=== PATIENT | male | born 1975 | race Caucasian/White ===

== ENCOUNTER 2020-09-25 10:43 | Outpatient (CLI) | payer OTHER, SELFPAY ==
--- NOTE | ~2020-09-25 | US_ITS ---
EXAMINATION: US venous doppler LE RT EXAM DATE: 09/25/2020 11:25 INDICATION: Right leg swelling. Factor 2, 5 deficiencies. Coagulopathy. TECHNIQUE: Multiple grayscale, color flow and Doppler images of the right lower extremity deep venous system obtained and reviewed. There is no prior study for comparison. FINDINGS: RIGHT SIDE Common femoral: -------- Normal. Profunda femoral: ------- Normal. Femoral: Thrombosed distally. Popliteal: Thrombosed. Posterior tibial: ---------Thrombosed. Peroneal: Normal. Gastrocnemius: Thrombosed. Soleus: Not visualized. Greater saphenous: ----- Normal. Lesser saphenous: ------ Not visualized. IMPRESSION: Positive for right lower extremity DVT as above. I discussed positive DVT results with Brit, stated she would notify Kiet Yu MD, my convers ation with her at 09/25/2020 11:42 CDT. Reviewed, dictated and finalized at location A. IMPRESSION: Positive for right lower extremity DVT as above. I discussed positive DVT results with Brit, stated she would notify Kiet Yu MD, my conversation with her at 09/25/2020 11:42 CDT.
== END 2020-09-25 10:44 | disposition home or self-care (01) ==
LOC: CHSIMG 10:48
PROVIDERS: PCP Family Medicine; Visit Provider Internal Medicine Hematology & Oncology
DX: M79.89 Other specified soft tissue disorders (principal)
CPT/HCPCS: 93971

== ENCOUNTER 2020-10-17 12:15 | Outpatient (CLI) | payer OTHER, SELFPAY ==
[2020-10-17 12:30] LABS: Basophils Absolute Auto 0.05 K/mm3 (0.00-0.10); Basophils Percent Auto 0.7 % (0.0-1.0); Eosinophils Absolute Auto 0.33 K/mm3 (0.02-0.50); Eosinophils Percent Auto 4.4 % (1.0-6.0); Hematocrit 36.5 % (40.0-54.0); Hemoglobin 12.3 g/dL (14.0-18.0); Immature Granulocyte Absolute 0.03 K/mm3 (0.00-0.00); Immature Granulocyte Percent A 0.4 % (0.0-0.0); Immature Reticulocyte Fraction 11.1 % (2.0-16.52); Lymphocytes Absolute Auto 1.47 K/mm3 (1.10-4.50); Lymphocytes Percent Auto 19.6 % (18.0-42.0); Mean Corpuscular HGB Conc 33.7 g/dL (32.0-36.0); Mean Corpuscular Hemoglobin 29.6 pg (27.0-31.0); Mean Corpuscular Volume 87.7 fL (78.0-102.0); Mean Platelet Volume 10.1 fl (8.7-11.0); Monocytes Absolute Auto 0.75 K/mm3 (0.10-0.90); Neutrophils Absolute Auto 4.9 K/mm3 (1.7-7.2); Neutrophils Percent Auto 64.9 % (50.0-70.0); Platelet Count Result 275 K/mm3 (150-420); Red Blood Count 4.16 M/mm3 (4.70-6.10); Red Cell Distribution Width 12.6 % (11.6-14.4); Reticulocyte Hemoglobin Conten 35.9 pg (28.0-35.0); Reticulocyte Percent 1.92 % (0.50-1.50); Reticulocytes Absolute 0.08 M/mm3 (0.02-0.1); White Blood Count 7.5 K/mm3 (4.8-10.8)
[2020-10-17 13:24] LABS: Ferritin 118 ng/mL (26-388); Iron 39 ug/dL (65-175); Percent Iron Saturation 12 % (12-57)
== END 2020-10-17 12:16 | disposition home or self-care (01) ==
PROVIDERS: PCP Family Medicine; Visit Provider Internal Medicine Hematology & Oncology
DX: D68.51 Activated protein C resistance (principal); M79.89 Other specified soft tissue disorders
CPT/HCPCS: 36415; 82728; 83540; 83550; 85025; 85046

== ENCOUNTER 2021-12-08 23:34 | Emergency (ER) | payer OTHER, SELFPAY ==
--- NOTE | 2021-12-08 23:40 | PC.NURSE ---
Pt brought in by officer, they were wanting a urine specimen cup per PD officer to obtain a urine. After speaking to officer they wish to do testing at station. Pt left in handcuffs c k 9 police officer and not seen for eval.
== END 2021-12-08 23:42 | disposition left against medical advice (07) ==
LOC: CHSED 23:36
PROVIDERS: Emergency Provider Internal Medicine Critical Care Medicine; PCP Family Medicine
DX: Z04.89 Encounter for examination and observation for other specified reasons (principal)
CPT/HCPCS: 99199

== ENCOUNTER 2025-03-01 13:58 | Emergency (ER) | payer OTHER, SELFPAY ==
--- NOTE | 2025-03-01 14:00 | ECG_ITS ---
Test Date: 2025-03-01 14:05:26 Measurements Intervals [place] Rate: 77 P: 75 [place]: 148 QRS: 43 QRSD: 81 T: 59 QT: 365 QTc: 415 Interpretive Statements SINUS RHYTHM NORMAL ECG No previous ECG available for comparison Electronically Signed On 03-01-2025 14:19:07 CDT by Balta Malik D.O.
--- OUTSIDE RECORDS SUMMARY | 2025-03-01 14:03 | XMS_ITS | Clinical Summary ---
Author Organization [facility] Address [address] [place] [address] Care Team Providers Care Financial Auditor Name Role Phone Bob Marie MD Primary Care Provider Kota Myles MD Unavailable Allergies No known active allergies Medications apixaban 5 MG tablet 10 mg BID X 7 days then 5 mg BID Total 30 days supply 74 tablet 12/09/19 Active hydrOXYzine 25 MG capsule hydroxyzine pamoate 25 mg capsule TAKE 1 2 CAPSULES EVERY 8 HOURS NEEDED FOR ANXIETY Active folic acid 1 MG tablet Take 1 tablet (1 mg total) by mouth daily. 08/05/19 22 Active gabapentin 300 MG capsule 1 TAB CAPSULE THREE TIMES DAILY 08/09/19 22 Active sertraline 100 MG tablet TAKE 1 TABLET TABLET DAILY FOR DEPRESSION AND ANXIETY 08/13/19 22 Active thiamine 100 MG Tab thiamine HCl (vitamin B1) 100 mg tablet TAKE 1 TABLET BY MOUTH EVERY DAY Active omeprazole 20 MG capsule 1 (ONE) CAPSULE DAILY FOR HEARTBURN 08/13/19 22 Active methadone 10 MG/ML Conc CONCENTRATED solution Take 80 mg by mouth daily. Active QUEtiapine 100 MG tablet 11/07/19 22 Active Thiamine Mononitrate (B1) 100 MG Tab Take 1 tablet by mouth daily. 10/31/19 22 Active COMPRESSION STOCKINGS 20-30 MMHg Compression Stocking Knee High open or closed toe Dx I83.893 1 Container 6 11/19/19 22 Active ondansetron 4 MG disintegrating tablet Take 1 tablet (4 mg total) by mouth every 6 (six) hours as needed for Nausea. 10 tablet 12/04/19 22 Active meclizine 25 MG chewable tablet 25-50mg three times a day as needed for dizziness 20 tablet 12/04/19 22 Active Active Problems Problem Noted Date Diagnosed Date History of pulmonary embolus (PE) 11/18/2021 History of DVT (deep vein thrombosis) 11/18/2021 Acute pulmonary embolism, un specified pulmonary embolism type, unspecified whether acute cor pulmonale present ([facility]) 01/04/2020 Anticoagulation management encounter 01/04/2020 Factor V Leiden mutation ([facility]) 01/04/2020 Prothrombin gene mutation ([facility]) 01/04/2020 IV drug abuse 01/04/2020 PE (pulmonary thromboembolism) ([facility]) 12/05/2019 Cervical radiculopathy 08/25/2019 Family History Medical History Relation Comments Cancer Father COPD Mother Relation Status Comments Father Alive Mother Alive Social History Tobacco Use Types Packs/Day Years Used Date Smoking Tobacco: Every Day Cigarettes Last attempted to quit: 10/03/2011 Smokeless Tobacco: Never Alcohol Use Standard Drinks/Week Comments Not Currently 0 (1 standard drink = 0.6 oz pur e alcohol) Sex and Gender Information Value Date Recorded Sex Assigned at Not on file Legal Sex Male 5:47 PM [employer]LECT[employer] Gender Identity Not on file Sexual Orientation Not on file Last Filed Vital Signs Vital Sign Reading Time Taken Comments Blood Pressure 120/85 11/03/2023 5:28 PM CDT Pulse 71 11/03/2023 5:28 PM CDT Temperature 36.7 C (98.1 F) 11/03/2023 5:28 PM CDT Respiratory Rate 18 11/03/2023 5:28 PM CDT Oxygen Saturation 97% 11/03/2023 5:28 PM CDT Inhaled Oxygen Concentration - - Weight 99.8 kg (220 lb) 11/03/2023 5:28 PM CDT Height 180.3 cm (5' 11) 11/03/2023 5:28 PM CDT Body Mass Index 30.68 11/03/2023 5:28 PM CDT Plan of Treatment Health Maintenance Due Date Last Done Comments Colorectal Cancer Screening Colonoscopy (10 Years) 1976 Annual Physical 09/06/1979 Hepatitis C 1994 DTaP, Tdap and Td Vaccines ( 1 - Tdap) 09/06/1995 04/16/1980, 04/09/1977, 02/05/1977 Hepatitis B Vaccines (1 of 3 - 19+ 3-dose series) 09/06/1995 Pneumococcal Vaccine: Pediatrics (0 to 5 Years) and At-Risk Patients (6 to 49 Years) (1 of 2 - PCV) 09/06/1995 COVID-19 Vaccine (2023-2 5 season) 2025 Meningococcal B Vaccine Aged Out No l onger eligible based on patient's age to complete this topic Meningococcal Vaccine Aged Out No corina soy eligible based on patient's age to complete this topic RSV Immunizations Under 20 Months Aged Out No longer eligible b ased on patient's age to complete this topic Insurance [facility] MEDICAID Advance Directives * Full Code (Latest Code Status on File) Date Activated Date Inactivated Comments 12/05/2019 6:35 AM 12/09/2019 1:25 PM Care Teams Financial Auditor Relationship Specialty Start Date End Date Bob Marie MD [address] [place] [id number] PCP - General FAMILY PRACTICE 08/25/19 Kota Myles MD [address] [place] [phone] Vascular/[employer]ional [employer] INTERNAL MEDICINE 10/09/21
--- NOTE | 2025-03-01 14:08 | ED_ITS ---
HPI - General Adult General Chief complaint: Chest Pain Stated complaint: Shortness of Breath/Tightness in Chest Time Seen by Provider: 03/01/25 14:02 Source: patient, RN notes reviewed and old records reviewed Mode of arrival: ambulatory Limitations: no limitations History of Present Illness HPI narrative: 49-year-old male presents to the [facility] with increasing chest tightness and shortness of breath that started last night. Denies any significant medical history. No treatment prior to arrival. Reports a history of hypertension but does not take medication. Treatments prior to arrival: none Related Data Home Medications ?Medication ?Instructions ?Recorded ?Confirmed ?Last Taken ?Type No Home Medications 03/01/25 03/01/25 U nknown History Allergies Allergy/AdvReac Type Severity Reaction Status Date / Time No Known Allergies Allergy Verified 03/01/25 14:08 Review of Systems Review of Systems: All systems reviewed & are unremarkable except as noted in HPI and below Constitutional: Constitutional: Reports no additional constitutional complaints Cardiovascular: Cardiovascular: Reports as per HPI, Reports chest pain and Reports dyspnea Respiratory: Respiratory: Reports as per HPI, Denies chest congestion, Denies cough and Reports dyspnea Musculoskeletal: Musculoskeletal: Reports no additional musculoskeletal complaints Integumentary/Breasts: Skin/Breast: Reports system reviewed and no additional complaints, except as docu PMFSH Comments At the time of my signature, I reviewed and agree with the nursing past medical, surgical, social, and family history. There is no relevant family history pertinent to the patient complaint. Exam Const: General: cooperative, healthy appearing, comfortable, no acute distress, well developed, alert and well nourished Nutritional Appearance: well nourished Orientation/consciousness: patient oriented x3 Limitations: no limitations HENMT: Head: normal to inspection Mouth: Yes Normal oral and palatal mucosa present, Yes lip normal, Yes tongue normal and Yes moist mucous membranes Eyes: General: appearance normal, both eyes and all related structures Alignment and Position: alignment normal Neck: Neck: normal visual inspection, full ROM, no lymphadenopathy and no meningeal signs Chest: Chest palpation & inspection: normal inspection of the chest Resp: Effort & Inspection: normal respiratory effort and able to speak in complete sentences Auscultation: clear to auscultation bilaterally, no crackles, no rales, no rhonchi and no wheezes Cardio: Rate: regular rate Skin: General skin exam: normal color and no rashes or lesions noted Neuro: General: patient oriented x3, gait normal, moves all extremities and no meningeal signs Cognition (Neuro): normal cognition Speech: normal speech Gait exam (Neuro): Normal gait present Extrem: General: normal to inspection, full ROM, capillary refill normal and normal gait Psych: Appearance: grossly normal and well kempt Mental Status: mental status grossly normal Speech and movement: Normal speech and movement present and Clear speech present Affect: normal affect Attitude: cooperative Course Course Level of Care: Express Care Visit Vital Signs Vital signs: Vital Signs Temperature 97.8 F 03/01/25 14:09 Pulse Rate 75 03/01/25 14:09 Respiratory Rate 22 H 03/01/25 14:09 Blood Pressure 128/91 H 03/01/25 14:09 Pulse Oximetry 98 03/01/25 14:09 Oxygen Delivery Room Air 03/01/25 14:09 Temperature 97.8 F 03/01/25 14:09 Pulse Rate 75 03/01/25 14:09 Respiratory Rate 22 H 03/01/25 14:09 Blood Pressure 128/91 H 03/01/25 14:09 Pulse Oximetry 98 03/01/25 14:09 Oxygen Delivery Room Air 03/01/25 14:09 Reviewed Transfer Transfered to: [facility] Transportation: Other (EMS offered, patient declined.) Transfer rationale: Patient with increasing chest pain, shortness of breath sending for higher level care Accepting physician: Spoke with Nurys BYNUM, Dr. Cota Medical Decision Making MDM Narrative Medical decision making narrative: Patient presents with chest pain, shortness of breath, concerns for cardiac issues. Explained to patient that we cannot do a cardiac workup. Sending for patient further evaluation to the ER. Patient originally stated he has a distant history of hypertension. Told RN he has a history of factor 5. Transfer instructions reviewed patient to go directly to the ER. EMS was offered, patient declined. All questions have been answered, and the patient deny any further questions. Some parts of this dictation were generated by voice recognition software and may contain typographical and/or grammatical inaccuracies. Differential Diagnosis Differential Diagnosis: Cardiac event, STEMI, non STEMI, PE, pneumonia, Medical Records Medical records reviewed: Yes I reviewed the external patient's medical records. Vital Signs Vital Signs: Vital Signs Temperature 97.8 F 03/01/25 14:09 Pulse Rate 75 03/01/25 14:09 Respiratory Rate 22 H 03/01/25 14:09 Blood Pressure 128/91 H 03/01/25 14:09 Pulse Oximetry 98 03/01/25 14:09 Oxygen Delivery Room Air 03/01/25 14:09 Temperature 97.8 F 03/01/25 14:09 Pulse Rate 75 03/01/25 14:09 Respiratory Rate 22 H 03/01/25 14:09 Blood Pressure 128/91 H 03/01/25 14:09 Pulse Oximetry 98 03/01/25 14:09 Oxygen Delivery Room Air 03/01/25 14:09 Reviewed Lab Data Lab results reviewed: Yes I reviewed the patient's lab results. Labs: Reviewed ECG Data EKG #1: Attestation: I personally reviewed and interpreted this ECG as follows: ECG completion date: 03/01/25 ECG completion time: 14:05 Interpretation: Ventricular rate 77, sinus rhythm, MT interval 148, QRS duration 81. No ST elevation or depression noted Critical Care Time Critical Care Time Critical Care Time: No Discharge Plan Discharge Clinical Impression: Shortness of breath Chest pain Qualifiers: Chest pain type: unspecified Qualified Code(s): R07.9 - Chest pain, unspecified Patient Disposition: Acute Care Hospital Condition: Stable Patient Language: Vietnamese Prescriptions: No Action No Home Medications Follow-up/Referrals: UNKNOWN,DOCTOR [Primary Care Provider]
[2025-03-01 14:09] VITALS: BP 128/91; PULSE 75; RESP 22; TEMP 36.6; O2SAT 98
== END 2025-03-01 14:10 | disposition short-term general hospital (02) ==
PROVIDERS: Emergency Provider Nurse Practitioner
DX: R06.02 Shortness of breath (principal); R07.9 Chest pain, unspecified; I10 Essential (primary) hypertension
CPT/HCPCS: 93005; 99213; G0463